=== PATIENT | male | born 1985 | race Caucasian/White ===

== ENCOUNTER 2016-12-18 09:14 | Emergency (ER) | payer BC ==
[2016-12-18 09:20] VITALS: BP 145/92; PULSE 72; TEMP 99.1; BMI 29.0
[2016-12-18] MEDS ORDERED: KETOROLAC TROMETHAMINE 30 MG/1 ML VIAL IM ONE (09:46)
[2016-12-18] MEDS ORDERED: CYCLOBENZAPRINE HCL 10 MG TABLET (FP) PO ONE (09:46)
[2016-12-18] MEDS ORDERED: KETOROLAC TROMETHAMINE 30 MG/1 ML VIAL ONE (09:54)
[2016-12-18] MEDS ORDERED: CYCLOBENZAPRINE HCL 10 MG TABLET (FP) ONE (09:54)
--- NOTE | 2016-12-18 09:55 | PDOC ---
History of Present Illness - General Chief Complaint: Back Pain Stated Complaint: lower back pain Time Seen by Provider: 12/18/16 09:15 History Source: Patient Exam Limitations: No Limitations - History of Present Illness Initial Comments: 12/18/16 09:52 This patient is a 31-year-old male who is otherwise healthy who presents emergency department with a complaint of back pain. 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 He denies direct trauma to his back. 2 days after that he noticed that his back was very painful. He describes his pain as sharp, rated 9/10, no radiation to the legs, no focal weakness or numbness. He is taking ibuprofen for pain but states it hasn't really helped him. Pain is worse with ambulating or attending to bend forward. Patient denies history of IV drug use. Patient denies history of cancer GENERAL/CONSTITUTIONAL: No: fever, chills, weakness, loss of appetite. MUSCULOSKELETAL: Yes: back pain No: back pain, neck pain, joint pain, muscle swelling or pain SKIN : No: lesions, pallor, rash or easy bruising. NEUROLOGIC: No: headache, vertigo, paresthesias, weakness ENDOCRINE: No: unexplained weight gain or loss HEMATOLOGIC/LYMPHATIC: No: anemia, easy bleeding, swelling nodes. GENERAL: The patient is in no acute distress. EXTREMITIES: Normal range of motion, no edema. No clubbing or cyanosis. No erythema, or tenderness. NEUROLOGICAL: Cranial nerves II through XII grossly intact. Normal speech. No focal neurological deficits. MUSCULOSKELETAL: No evidence of kyphosis No evidence of scoliosis Pt is not able to bend forward (+) paraspinal tenderness (-) straight leg raise Motor: L4/L5/S1 intact Sensation: L4/L5/S1 intact SKIN: Warm, Dry, normal turgor, no rashes or lesions noted. 12/19/16 09:45 Past History - Past Medical History Allergies/Adverse Reactions: Allergies Allergy/AdvReac Type Severity Reaction Status Date / Time No Known Allergies Allergy Verified 12/18/16 09:15 Home Medications: Ambulatory Orders Methocarbamol [Robaxin -] 500 mg PO TID PRN #30 tablet 12/18/16 Naproxen [Naprosyn -] 500 mg PO BID PRN #14 tablet 12/18/16 Oxycodone HCl/Acetaminophen [Percocet 5-325 mg Tablet -] 1 tab PO BID PRN #10 tablet MDD 2 12/18/16 Other medical history: pt denies - Psycho/Social/Smoking Cessation Hx Anxiety: No Suicidal Ideation: No Smoking Status: No Smoking History: Never smoked Have you smoked in the past 12 months: Yes Number of Cigarettes Smoked Daily: 0 Cigars Per Day: 6 Information on smoking cessation initiated: No Hx Alcohol Use: Yes (occasionally) Drug/Substance Use Hx: No Substance Use Type: None Hx Substance Use Treatment: No *Physical Exam - Vital Signs Last Vital Signs Temp Pulse Resp BP Pulse Ox 99.1 F 72 18 145/92 100 12/18/16 09:15 12/18/16 09:15 12/18/16 09:15 12/18/16 09:15 12/18/16 09:15 Medical Decision Making - Medical Decision Making 12/18/16 09:55 Patient at this point does not need additional imaging. He has no midline tenderness to palpation, and no high risk features. Will give pain medicine while in the ER. He will be driven home by a friend. Patient will be discharged with a prescription for home. Patient will be given a work note and asked not to return to work until his back is better, and not to return to work until taking these pain medications *DC/Admit/Observation/Transfer Diagnosis at time of Disposition: Back pain Qualifiers: Back pain location: low back pain Chronicity: acute Back pain laterality: bilateral Sciatica presence: without sciatica Qualified Code(s): M54.5 - Low back pain - Discharge Dispostion Disposition: HOME Condition at time of disposition: Stable Admit: No - Prescriptions Prescriptions: Naproxen [Naprosyn -] 500 mg PO BID PRN #14 tablet PRN Reason: Pain Oxycodone HCl/Acetaminophen [Percocet 5-325 mg Tablet -] 1 tab PO BID PRN #10 tablet MDD 2 PRN Reason: Severe Pain Methocarbamol [Robaxin -] 500 mg PO TID PRN #30 tablet PRN Reason: Lower Back Pain - Patient Instructions Printed Discharge Instructions: Low Back Pain, Back Pain (Alternative Therapy) , DI for Low Back Pain Additional Instructions: Return to the emergency department immediately with ANY new, persistent or worsening symptoms. Continue any medications as previously prescribed by your physician. You should follow up with your primary doctor as soon as possible regarding today's emergency department visit. . Please make sure your doctor reviews the results of your emergency evaluation. Thank you for coming to the [facility] today for your care. It was a pleasure to see you today. Please note that your evaluation is INCOMPLETE until you follow-up with your doctor. - Post Discharge Activity Work/School Note: Back to Work
== END 2016-12-18 10:13 | disposition home or self-care (01) ==
LOC: FER 09:14
PROC: 3E0233Z Introduction of Anti-inflammatory into Muscle, Percutaneous Approach (ICD-10-PCS; principal; 2016-12-18)
DX: M54.5 Low back pain (principal)
CPT/HCPCS: 99282-25